=== PATIENT | male | born 1970 | race Caucasian/White ===

== ENCOUNTER 2020-06-18 04:03 | Inpatient (IN) | payer SELFPAY ==
[2020-06-18] VITALS (8 sets, daily range): BP systolic 108–122; BP diastolic 57–68; PULSE 63–72; RESP 16–20; TEMP 36.3–36.8; O2SAT 93–98
--- NOTE | ~2020-06-18 | XR_ITS ---
EXAMINATION: XR chest 2V DATE: 06/18/2020 04:59 INDICATION: Chest pain TECHNIQUE: AP view of the chest is obtained. COMPARISON: None available FINDINGS: The lungs are hyperinflated. There are minimal airspace opacities of the lung bases. There is no pleural effusion or pneumothorax. The cardiomediastinal silhouette is normal. The visualized anderson aruna and soft tissues are unremarkable. IMPRESSION: 1. Mild atelectasis of the lung bases. Reviewed, dictated and finalized at location B.
--- NOTE | ~2020-06-18 | CT_ITS ---
EXAMINATION: CT abdomen pelvis wo con DATE: 06/18/2020 04:59 INDICATION: Mid abdominal pain for one day TECHNIQUE: Computed tomography (CT) of the abdomen and pelvis was performed without intravenous contr ast. Automated exposure control and iterative reconstruction technique were employed. Exam dose: 394 .23 mGy-cm total exam DLP. COMPARISON: None. FINDINGS: Bilateral mild dependent lower lobe atelectasis. Normal heart size. No pericardial or pleural effusion. The liver, spleen, pancreas, and adrenal glands and kidneys are unremarkable on this noncontrast limi paulina examination. The common is present. No bile duct or pancreatic duct dilatation. No urinary tract calculus or hydroureteronephrosis. The urinary bladder is unremarkable. There is mod erate prostate enlargement. Normal caliber of the abdominal aorta. No intraperitoneal or retroperitoneal or pelvic mass lesion or adenopathy. There is a small amount of free fluid in the pelvis. There are numerous diverticula of the left and right colon, most numerous in the sigmoid colon and de scending colon; no CT evidence of diverticulitis. There are numerous mid to distal fluid distended small bowel segments with air-fluid levels, measurin g up to 2.5 cm diameter. Differential diagnosis includes adynamic ileus, enteritis, partial small bow el obstruction. No bowel wall thickening, pneumatosis or intraperitoneal free air is detected. Included skeletal structures are unremarkable. IMPRESSION: Nonspecific fluid distention and air-fluid levels of mid to distal small bowel; diffusio n diagnosis includes enteritis, adynamic ileus, partial small bowel obstruction Diverticulosis of the colon; no CT evidence of diverticulitis Reviewed, dictated and finalized at Location A. Reviewed, dictated and finalized at location A. IMPRESSION: Nonspecific fluid distention and air-fluid levels of mid to distal small bowel; diffusion diagnosis includes enteritis, adynamic ileus, partial s mall bowel obstruction Diverticulosis of the colon; no CT evidence of diverticulitis
--- NOTE | ~2020-06-18 | CT_ITS ---
EXAMINATION: CTA chest PE protocol DATE: 06/18/2020 05:59 INDICATION: Chest pain. Elevated d-dimer. TECHNIQUE: Computed tomography angiography (CTA) of the chest was performed with 100 mL Omnipaque-350 intravenous contrast timed to evaluate the pulmonary arteries. Coronal maximum intensity projection 3D-reconstructions were created by the technologist. Automated exposure control and iterative reconst ruction technique were employed. Exam dose: 265.76 mGy-cm total exam DLP. COMPARISON: 06/18/2022 view chest FINDINGS: There is moderate contrast enhancement of the pulmonary arteries and no evidence of central or segmental pulmonary embolism. No thoracic aortic aneurysm or dissection is detected. Normal heart size. No pericardial or pleural effusion. No hilar or mediastinal mass lesion or lymphadenopathy. The thyroid gland is of normal size and homog eneous enhancement. Emphysematous changes are evident, predominating in the upper lobes, with some bullous changes. Mild bilateral lower lobe dependent atelectasis. No pulmonary consolidation. No pulmonary mass lesion is evident. There is cupping of the superior vertebral endplate of T3 consistent with mild chronic compression fr acture deformity. IMPRESSION: No evidence of pulmonary embolism Emphysema Reviewed, dictated and finalized at Location A. Reviewed, dictated and finalized at location A.
--- NOTE | 2020-06-18 04:10 | ECG_ITS ---
Measurements Intervals [place] Rate: 70 P: 50 OH: 184 QRS: 66 QRSD: 98 T: 81 QT: 429 QTc: 466 Interpretive Statements SINUS RHYTHM NONSPECIFIC T-WAVE ABNORMALITY- HIGH LATERAL LEADS BORDERLINE ECG Electronically Signed On 06-18-2020 7:15:59 CDT by Estuardo Batres D.O.
[2020-06-18 04:31] LABS: Basophils Absolute Auto 0.05 K/mm3 (0.00-0.10); Basophils Percent Auto 0.4 % (0.0-1.0); Eosinophils Absolute Auto 0.32 K/mm3 (0.02-0.50); Eosinophils Percent Auto 2.3 % (1.0-6.0); Hemoglobin 15.1 g/dL (14.0-18.0); Immature Granulocyte Absolute 0.04 K/mm3 (0.00-0.00); Immature Granulocyte Percent A 0.3 % (0.0-0.0); Lymphocytes Absolute Auto 1.95 K/mm3 (1.10-4.50); Mean Corpuscular HGB Conc 33.6 g/dL (32.0-36.0); Mean Corpuscular Hemoglobin 31.7 pg (27.0-31.0); Mean Corpuscular Volume 94.3 fL (78.0-102.0); Mean Platelet Volume 10.9 fl (8.7-11.0); Monocytes Absolute Auto 0.67 K/mm3 (0.10-0.90); Monocytes Percent Auto 4.8 % (2.0-11.0); Neutrophils Absolute Auto 10.9 K/mm3 (1.7-7.2); Neutrophils Percent Auto 78.2 % (50.0-70.0); Platelet Count Result 247 K/mm3 (150-420); Red Blood Count 4.77 M/mm3 (4.70-6.10); Red Cell Distribution Width 12.5 % (11.6-14.4); White Blood Count 13.9 K/mm3 (4.8-10.8)
--- NOTE | 2020-06-18 04:37 | ED.CHESTPAIN ---
HPI - Chest Pain General Chief Complaint: Chest Pain Stated Complaint: chest pain Source: patient Mode of arrival: EMS Limitations: no limitations History of Present Illness HPI narrative: This is a 50-year-old gentleman that presents via EMS with shortness stabbing left-sided chest pain and abdominal pain patient states that his chest pain started approximately 2 months ago has been constant and persistent on a daily basis, with no shortness of breath, no diaphoresis no shortness of breath, no fever chills no diarrhea constipation. The patient also states that he has abdominal pain epigastric and lower abdominal pain that is sharp in nature. Patient is a smoker, is currently on PPIs for GERD and had seen his primary care physician and set up for an outpatient stress test. In route via EMS the patient did receive nitro his pain level was an 8/10 and after nitroglycerin his pain levels 5/10 currently. Also with for nausea received Zofran, and 4 baby aspirin EN route via AMS. MD complaint: chest pain and chest discomfort Onset (ago): month(s) Timing of current episode: constant Prior episodes: Yes Onset: during rest and during exertion Pain location: left chest and epigastric Severity: moderate Pain scale (0-10): 5 Quality: sharp Relieving factors: nitroglycerin Exacerbating factors: nothing Associated symptoms: nausea Related Data Home Medications Medication Instructions Recorded Confirmed omeprazole 40 mg PO DAILY 06/18/20 06/18/20 Allergies Allergy/AdvReac Type Severity Reaction Status Date / Time Penicillins Allergy Unknown Verified 06/18/20 04:29 Review of Systems Review of Systems: All systems reviewed & are unremarkable except as noted in HPI and below PMFSH Past Medical History Medical History GERD (gastroesophageal reflux disease) Exam Const: General: no acute distress and alert Orientation/consciousness: patient oriented x3 HENMT: Head: normal to inspection Eyes: Conjunctivae: conjunctivae normal Pupils: Equal, round and reactive pupils present EOM: EOMs intact bilaterally Neck: Neck: normal visual inspection, no lymphadenopathy and no meningeal signs Chest: Chest palpation & inspection: normal inspection of the chest Resp: Effort & Inspection: normal respiratory effort Auscultation: clear to auscultation bilaterally Cardio: Rate: regular rate Rhythm: regular rhythm GI: Other: tender lower abdomen with palpation the umbilical epigastric and right lower quadrant. : Testes: Testes normal Back/Spine/Pelvis: Back: no CVA tenderness Skin: General skin exam: normal color Rashes: no rashes Neuro: General: patient oriented x3, moves all extremities, no meningeal signs and no focal motor deficits Extrem: General: normal to inspection and no pedal edema Psych: Appearance: grossly normal Mental Status: mental status grossly normal Course Course Emergency Course: Patient received some nitroglycerin in route to ER via EMS which reduces pain level from 8/10 to a 5/10. Reassessment of patient has some abdominal pain and chest pain have resolved, currently there is no nausea. Vital Signs Vital signs: Vital Signs Temperature 36.8 C 06/18/20 04:29 Pulse Rate 72 06/18/20 04:29 Respiratory Rate 18 06/18/20 04:29 Blood Pressure 112/68 06/18/20 04:29 Pulse Oximetry 97 06/18/20 04:29 Temperature 36.8 C 06/18/20 04:29 Pulse Rate 72 06/18/20 04:29 Respiratory Rate 18 06/18/20 04:29 Blood Pressure 112/68 06/18/20 04:29 Pulse Oximetry 97 06/18/20 04:29 MDM - Chest Pain Lab Data Result diagrams: 06/18/20 04:27 06/18/20 04:27 Labs: Lab Results 06/18/20 06/18/20 06/18/20 Range/Units 04:27 04:27 04:27 WBC 13.9 H (4.8-10.8) K/mm3 RBC 4.77 (4.70-6.10) M/mm3 Hgb 15.1 (14.0-18.0) g/dL Hct 45.0 (40.0-54.0) % MCV 94.3 (78.0-102.0) fL M[facility]
[2020-06-18] MEDS: ONDANSETRON INJ 4 MG/2 ML VIAL IV PUSH (04:40)
[2020-06-18] MEDS: MORPHINE SULFATE 4 MG/ML INJ IV PUSH (04:40)
[2020-06-18] MEDS: SODIUM CHLORIDE 0.9% IV 1,000 ML 999 ML IV CONT (04:41)
[2020-06-18 04:49] LABS: Alanine Aminotransferase 21 U/L (16-63); Alkaline Phosphatase 100 U/L (46-116); Anion Gap 9 mmol/L (8-16); Aspartate Amino Transferase 11 U/L (15-37); Bilirubin,Total 0.4 mg/dL (0.00-1.00); Blood Urea Nitrogen 13 mg/dL (7-18); Calcium 8.3 mg/dL (8.5-10.1); Carbon Dioxide 26 mmol/L (21-32); Chloride 105 mmol/L (98-108); Estimated CRCL calculation 87 ml/min; Estimated Glomerular Filt Rate > 60; Glucose 152 mg/dL (70-99); Lipase 36 U/L (73-393); Osmolality Calculated 293 mOsm/kg (285-295); Potassium 3.7 mmol/L (3.5-5.1); Sodium 140 mmol/L (136-145); Total Protein 7.4 g/dL (6.4-8.2); Troponin I < 0.02 ng/mL (0.00-0.056)
[2020-06-18 04:55] LABS: BNP 9.3 pg/mL (0-100)
[2020-06-18 05:50] LABS: Appearance Urine Clear (Clear); Bilirubin Urine Negative (Negative); Color Urine Yellow (Yellow); Glucose Urine UA Negative (Negative); Ketones Urine Negative (Negative); Leukocyte Esterase Ur Negative (Negative); Nitrate Urine Negative (Negative); Protein Urine Negative (Negative); pH Urine 6.5 (5.0-8.0)
--- NOTE | 2020-06-18 05:54 | PC.NURSE ---
Pt returned from CT at this time in stable condition, NAD noted, reconnected to monitor, call light in reach, updated with plan of care, all questions answered, no further needs expressed.
[2020-06-18 05:56] LABS: Add Urine Microscopic? YES; Bacteria Urine None seen /hpf; Blood Urine Trace-Intact (Negative); Squamous Epithelial Cell Urine None seen /hpf (Few); WBC Urine 0-3 /hpf (0-3)
--- NOTE | 2020-06-18 07:48 | PM.IMHP ---
H&P: HPI History of Present Illness Date/Time: 06/18/20 07:48 Chief complaint: partial small bowel obstruction Narrative: arnulfo houser is a 50 year old male who presented to the [facility] with complaints of chest pain that radiated to his right arm, lower extremity pain, dizziness, palpitation, and abdominal pain. Patient has a past medical history of GERD. According to patient he has been having chest pain for the last 2 months he did visit his doctor's office on 06 12 with complaints of chest pain. His primary care physician has ordered a stress test and Holter monitor for 06/23. Patient noticed that in the past for the last 2 months he has been having chest pain with dizziness, his chest pain did radiate to his right arm and he has been having lower extremity pains with this chest pains. Patient noted that he decided to come into the ED today because he not only had dizziness with chest pain he also has a racing heart with abdominal pain. Patient's vital signs 108/57 heart rate 63 respiratory rate 20 temperature 97.3 and 93% on room air. Patient white count was slightly elevated at 13.9 his d-dimer was also elevated at 1.20. CT of the abdomen indicate possible diagnosis of enteritis, adynamic ileus, partial small bowel obstruction. Patient did have a normal bowel movement yesterday at approximately 11:00, and bowel sounds are present. Patient CTA was negative for PE and his chest x-ray indicated hyperinflated lungs. Patient is being admitted for abnormal CT of the abdomen to rule out partial small bowel obstruction and to rule out [place]. The patient denies SOB, extremity numbness, lightheadedness, constipation, diarrhea, chills, or fever. Review of Systems Review of Systems: All systems reviewed & are unremarkable except as noted in HPI and below (10 point system review) [facility] Past Medical History Medical History GERD (gastroesophageal reflux disease) Social History Social History Smoking packs per day: 1 Smoking cigarettes per day: 20.0 Years smoked: 25 Smoking pack-years: 25.00 Smoking status: Current every day smoker Tobacco type: cigarettes Second hand tobacco smoke exposure: No Alcohol intake: current Drinks per week: 3 Substance use: never Substance use type: does not use Gender identity (if verbalized by the patient): Male Sexual Orientation (if Verbalized by the Patient): Straight or Heterosexual Spiritual care concerns: No Meds Home Medications and Allergies Home Medications Medication Instructions Recorded Confirmed Type omeprazole 40 mg PO DAILY 06/18/20 06/18/20 History Allergies Allergy/AdvReac Type Severity Reaction Status Date / Time Penicillins Allergy Unknown Verified 06/18/20 04:29 Vital Signs Vital Signs - 24 hr 06/18/20 04:29 06/18/20 07:41 Temperature 98.2 F Pulse Rate 72 68 Respiratory Rate 18 16 Blood Pressure 112/68 112/63 Pulse Oximetry 97 98 Exam Narrative: Exam Narrative: GENERAL: This is a well-nourished, well-developed patient, in no apparent distress. HEAD: normocephalic, atraumatic. EYES: PERRL. Sclera clear/white. Vision is grossly intact. EARS: External ears normal, auditory canals clear and without drainage, TMs normal without perforation. Hearing grossly intact. NOSE: External nose normal with no obvious nasal discharge, nares without redness, no rhinorrhea. THROAT: Mucous membranes moist, posterior pharynx clear. NECK: Neck supple, non-tender without lymphadenopathy, masses or thyromegaly. CARDIOVASCULAR: Regular rate and rhythm without murmurs, gallops, or rubs. RESPIRATORY: Clear to auscultation. Breath sounds equal bilaterally. No wheezes, rales, or rhonchi. GASTROINTESTINAL: Abdomen soft, non-tender, nondistended. Bowel sounds are active. No hepato-splenomegaly, or palpable masses. No guarding. SKIN: warm, intact with no suspi
--- NOTE | 2020-06-18 07:50 | PC.NURSE ---
PT TO ROOM 204 PER STRETCHER ACCOMPANIED BY INTERNATIONAL PROJECT ENGINEER AND SPOUSE. PT COMPLAINS OF ABDOMINAL PAIN AND NAUSEA OFF AND ON FOR THE LAST COUPLE OF MONTHS. HAS HISTORY OR GERD. STATES HAD A SOLID BM AT 1130PM LAST NIGHT. ABD SOFT, NONTENDER, BS PRESENT X4. PT DENIES PAIN/N/V AT PRESENT. PT SLEEPY DUE TO MORPHINE GIVEN IN ER. PT AND SPOUSE ORIENTED TO ROOM, HOSPITAL ENVIRONMENT, VISITOR POLICY AND PLAN OF CARE. PT AND SPOUSE HAVE NO QUESTIONS OR CONCERNS. CALL MERAZ IN REACH. REMINDED TO CALL WITH NEEDS.
[2020-06-18] MEDS: SODIUM CHLORIDE 0.45% 1,000 ML 100 ML IV CONT ×2 (08:25→18:19)
--- NOTE | 2020-06-18 09:40 | PC.NURSE ---
PT RESTING PER BED. AND AUTOMOTIVE PRODUCT ENGINEER PRESENT AND DISCUSSING PLAN OF CARE WITH PATIENT. PT DENIES N/V/PAIN AT PRESENT. IV FLUIDS CONTINUE ORDERED. TELE NSR. REMINDED TO CALL WITH NEEDS.
[2020-06-18] MEDS: NICOTINE (*PBKC) 21 MG PATCH 1 PATCH TRANSDERM (09:41)
[2020-06-18] MEDS: PANTOPRAZOLE SODIUM IV 40 MG VIAL IV PUSH (09:41)
[2020-06-18] MEDS: ENOXAPARIN 40 MG/0.4 ML SYRINGE SUB-Q (09:42)
[2020-06-18] MEDS: BUDESONIDE/FORMOTEROL (*SP) 160-4.5 MCG 6 GM INH 2 PUFF INHALATION ×2 (09:42→21:39)
--- NOTE | 2020-06-18 10:50 | PC.NURSE ---
PT REMAINS RESTING PER BED. DENIES CP/N/V. IV FLUIDS INFUSIMG. NSR ON TELE. REMINDED TO CALL WITH NEEDS.
[2020-06-18 14:17] LABS: Troponin I < 0.02 ng/mL (0.00-0.056)
--- NOTE | 2020-06-18 18:34 | PC.NURSE ---
PT SLEEPING PER BED. IV FLUIDS INFUSING. NSR ON TELE. AT BEDSIDE.
[2020-06-18 18:44] LABS: Troponin I < 0.02 ng/mL (0.00-0.056)
[2020-06-19] VITALS: BP 110/57; PULSE 60; RESP 18; TEMP 36.6; O2SAT 95
[2020-06-19 03:58] VITALS: PULSE 65
[2020-06-19 04:00] VITALS: BP 108/53; PULSE 58; RESP 16; TEMP 36.2; O2SAT 96
[2020-06-19] MEDS: SODIUM CHLORIDE 0.45% 1,000 ML 100 ML IV CONT (04:07)
[2020-06-19 05:39] LABS: Basophils Absolute Auto 0.05 K/mm3 (0.00-0.10); Basophils Percent Auto 0.7 % (0.0-1.0); Eosinophils Absolute Auto 0.36 K/mm3 (0.02-0.50); Eosinophils Percent Auto 5.2 % (1.0-6.0); Hematocrit 42.8 % (40.0-54.0); Hemoglobin 14.1 g/dL (14.0-18.0); Immature Granulocyte Absolute 0.01 K/mm3 (0.00-0.00); Immature Granulocyte Percent A 0.1 % (0.0-0.0); Lymphocytes Absolute Auto 2.83 K/mm3 (1.10-4.50); Lymphocytes Percent Auto 41.3 % (18.0-42.0); Mean Corpuscular HGB Conc 32.9 g/dL (32.0-36.0); Mean Corpuscular Hemoglobin 31.3 pg (27.0-31.0); Mean Corpuscular Volume 94.9 fL (78.0-102.0); Monocytes Absolute Auto 0.51 K/mm3 (0.10-0.90); Monocytes Percent Auto 7.4 % (2.0-11.0); Neutrophils Absolute Auto 3.1 K/mm3 (1.7-7.2); Neutrophils Percent Auto 45.3 % (50.0-70.0); Platelet Count Result 224 K/mm3 (150-420); Red Blood Count 4.51 M/mm3 (4.70-6.10); Red Cell Distribution Width 12.7 % (11.6-14.4); White Blood Count 6.9 K/mm3 (4.8-10.8)
[2020-06-19 05:57] LABS: Alanine Aminotransferase 8 U/L (16-63); Albumin Level 3.3 g/dL (3.4-5.0); Alkaline Phosphatase 86 U/L (46-116); Anion Gap 9 mmol/L (8-16); Aspartate Amino Transferase < 10 U/L (15-37); Bilirubin,Total 0.4 mg/dL (0.00-1.00); Blood Urea Nitrogen 9 mg/dL (7-18); Carbon Dioxide 23 mmol/L (21-32); Chloride 109 mmol/L (98-108); Estimated CRCL calculation 99 ml/min; Estimated Glomerular Filt Rate > 60; Glucose 106 mg/dL (70-99); Magnesium 2.1 mg/dL (1.8-2.4); Osmolality Calculated 290 mOsm/kg (285-295); Potassium 3.9 mmol/L (3.5-5.1); Sodium 141 mmol/L (136-145); Total Protein 6.3 g/dL (6.4-8.2)
[2020-06-19] MEDS: PANTOPRAZOLE SODIUM IV 40 MG VIAL IV PUSH (06:29)
[2020-06-19 07:25] VITALS: BP 136/67; PULSE 64; RESP 18; TEMP 36.3; O2SAT 99
--- NOTE | 2020-06-19 07:25 | P.DS_ITS ---
DS: Admitting Diagnosis Admitting Diagnosis Admitting Diagnosis: partial small bowel obstruction DS: Discharge Diagnosis Discharge Diagnosis (1) Partial obstruction of small intestine: Code(s): K56.600 - Partial intestinal obstruction, unspecified as to cause Status: Acute Assessment and Plan: * Resolved * Patient tolerated regular diet * Patient denies any nausea vomiting or abdominal pain at this time (2) GERD (gastroesophageal reflux disease): Code(s): K21.9 - Gastro-esophageal reflux disease without esophagitis Status: Acute Assessment and Plan: * Continue IV Protonix (3) Hyperinflation of lungs: Code(s): R09.89 - Other specified symptoms and signs involving the circulatory and respiratory systems Status: Acute Assessment and Plan: * Possibly secondary to COPD patient has not been diagnosed with COPD but he is a smoker * Chest x-ray indicates hyperinflated lungs * Continue Symbicort and albuterol * Advised patient to follow-up with the pulmonary function test after discharge to officially diagnose him with COPD (4) Tobacco dependency: Code(s): F17.200 - Nicotine dependence, unspecified, uncomplicated Status: Acute Assessment and Plan: * Started nicotine patch (5) DVT prophylaxis: Code(s): Z29.9 - Encounter for prophylactic measures, unspecified Status: Acute Assessment and Plan: * Patient will discharge today (6) Abnormal CT of the abdomen: Code(s): R93.5 - Abnormal findings on diagnostic imaging of other abdominal regions, incl uding retroperitoneum Status: Acute Assessment and Plan: * Resolved * CT indicates CT indicates possible enteritis vs adynamic ileus vs partial small bowel obstruction * Bowel sounds positive * Last bowel movement last night at 11:00 AM * Patient able to tolerate meals (7) Chest pain: Code(s): R07.9 - Chest pain, unspecified Status: Acute Assessment and Plan: * [place] ruled out and treat GERD with Protonix * Patient troponin negative, * Patient scheduled to have a stress test with Holter monitor on 06/23 * Patient reported to his primary care physician office on with chest pain * Patient will be discharged on statins * ASCVD indicates patient heart disease risk are under 10%, with a 8% risk for 10 year for HD or stroke . will place patient on atorvastatin 10 mg daily * Patient also presented to the ED on 05/08/2020 [place] was ruled out at that time. DS: Summary Time Spent with Patient Time attestation: Total time spent providing and/or coordinating discharge services: Exam Narrative: Exam Narrative: GENERAL: This is a well-nourished, well-developed patient, in no apparent distress. HEAD: normocephalic, atraumatic. EYES: PERRL. Sclera clear/white. Vision is grossly intact. EARS: External ears normal, auditory canals clear and without drainage, TMs normal without perforation. Hearing grossly intact. NOSE: External nose normal with no obvious nasal discharge, nares without redness, no rhinorrhea. THROAT: Mucous membranes moist, posterior pharynx clear. NECK: Neck supple, non-tender without lymphadenopathy, masses or thyromegaly. CARDIOVASCULAR: Regular rate and rhythm without murmurs, gallops, or rubs. RESPIRATORY: Clear to auscultation. Breath sounds equal bilaterally. No wheezes, rales, or rhonchi. GASTROINTESTINAL: Abdomen soft, non-tender, nondistended. Bowel sounds are active. No hepato-splenomegaly, or palpable masses. No guarding. SKIN: warm, intact with no suspicious lesions o
--- NOTE | 2020-06-19 07:25 | PM.DS ---
DS: Admitting Diagnosis Admitting Diagnosis Admitting Diagnosis: partial small bowel obstruction DS: Discharge Diagnosis Discharge Diagnosis (1) Partial obstruction of small intestine: Code(s): K56.600 - Partial intestinal obstruction, unspecified as to cause Status: Acute Assessment and Plan: Resolved Patient tolerated regular diet Patient denies any nausea vomiting or abdominal pain at this time (2) GERD (gastroesophageal reflux disease): Code(s): K21.9 - Gastro-esophageal reflux disease without esophagitis Status: Acute Assessment and Plan: Continue IV Protonix (3) Hyperinflation of lungs: Code(s): R09.89 - Other specified symptoms and signs involving the circulatory and respiratory systems Status: Acute Assessment and Plan: Possibly secondary to COPD patient has not been diagnosed with COPD but he is a smoker Chest x-ray indicates hyperinflated lungs Continue Symbicort and albuterol Advised patient to follow-up with the pulmonary function test after discharge to officially diagnose him with COPD (4) Tobacco dependency: Code(s): F17.200 - Nicotine dependence, unspecified, uncomplicated Status: Acute Assessment and Plan: Started nicotine patch (5) DVT prophylaxis: Code(s): Z29.9 - Encounter for prophylactic measures, unspecified Status: Acute Assessment and Plan: Patient will discharge today (6) Abnormal CT of the abdomen: Code(s): R93.5 - Abnormal findings on diagnostic imaging of other abdominal regions, including retroperitoneum Status: Acute Assessment and Plan: Resolved CT indicates CT indicates possible enteritis vs adynamic ileus vs partial small bowel obstruction Bowel sounds positive Last bowel movement last night at 11:00 AM Patient able to tolerate meals (7) Chest pain: Code(s): R07.9 - Chest pain, unspecified Status: Acute Assessment and Plan: [place] ruled out and treat GERD with Protonix Patient troponin negative, Patient scheduled to have a stress test with Holter monitor on 06/23 Patient reported to his primary care physician office on with chest pain Patient will be discharged on statins ASCVD indicates patient heart disease risk are under 10%, with a 8% risk for 10 year for HD or stroke . will place patient on atorvastatin 10 mg daily Patient also presented to the ED on 05/08/2020 [place] was ruled out at that time. DS: Summary Time Spent with Patient Time attestation: Total time spent providing and/or coordinating discharge services: Exam Narrative: Exam Narrative: GENERAL: This is a well-nourished, well-developed patient, in no apparent distress. HEAD: normocephalic, atraumatic. EYES: PERRL. Sclera clear/white. Vision is grossly intact. EARS: External ears normal, auditory canals clear and without drainage, TMs normal without perforation. Hearing grossly intact. NOSE: External nose normal with no obvious nasal discharge, nares without redness, no rhinorrhea. THROAT: Mucous membranes moist, posterior pharynx clear. NECK: Neck supple, non-tender without lymphadenopathy, masses or thyromegaly. CARDIOVASCULAR: Regular rate and rhythm without murmurs, gallops, or rubs. RESPIRATORY: Clear to auscultation. Breath sounds equal bilaterally. No wheezes, rales, or rhonchi. GASTROINTESTINAL: Abdomen soft, non-tender, nondistended. Bowel sounds are active. No hepato-splenomegaly, or palpable masses. No guarding. SKIN: warm, intact with no suspicious lesions or rash, good texture and turgor. NEURO: awake, alert, and oriented to person, place and time. There were no obvious focal neurologic abnormalities. Steady gait EXTREMITIES: Normal range of motion. No edema. No calf tenderness. Negative Homans sign bilaterally. BACK: Nontender without deformity or crepitance. No flank tenderness. [place] Coma Scale Eye Opening: Spontaneous 4 Zac Coma Scale Motor: Obey
[2020-06-19] MEDS: BUDESONIDE/FORMOTEROL (*SP) 160-4.5 MCG 6 GM INH 2 PUFF INHALATION (09:12)
[2020-06-19] MEDS: ATORVASTATIN 10 MG TABLET PO (09:13)
--- NOTE | 2020-06-19 11:15 | PC.NURSE ---
Patient to be discharged home. IV sites removed, tip intact. Dressing applied to sites. No redness noted. Telemetry removed. All discharge instructions and education reviewed with patient. Patient states understanding. Denies any questions at this time. Patient ambulated to front door accompanied by this nurse. Patient left via private vehicle with family member.
== END 2020-06-19 11:15 | disposition home or self-care (01) | DRG 247 ==
LOC: CHSED 07:22 → CHS2ND 07:26
PROVIDERS: Emergency Medicine; Admitting Provider Emergency Medicine; Emergency Provider Emergency Medicine; Visit Provider Emergency Medicine
DX: K56.609 Unspecified intestinal obstruction, unspecified as to partial versus complete obstruction (principal); K21.9 Gastro-esophageal reflux disease without esophagitis; F17.200 Nicotine dependence, unspecified, uncomplicated; K57.90 Diverticulosis of intestine, part unspecified, without perforation or abscess without bleeding; K56.600 Partial intestinal obstruction, unspecified as to cause; R07.9 Chest pain, unspecified; F17.210 Nicotine dependence, cigarettes, uncomplicated; R09.89 Other specified symptoms and signs involving the circulatory and respiratory systems
CPT/HCPCS: 36415; 71046; 71275; 74176; 80053; 81001; 83690; 83735; 83880; 84484; 85025; 85380; 93005; 96361; 96374; 96375; 99284; 99285; A9270; C9113; J1650; J2270; J2405; J7030; Q9965

== ENCOUNTER 2022-03-02 08:42 | Outpatient (CLI) | payer BC, SELFPAY ==
--- NOTE | 2022-03-02 08:44 | EST_ITS ---
Patient Info Name: Mikhail Shahid Age: 51 years : 1970 Gender: Male Ht: 75 in Wt: 168 lbs BSA: 2.00 m2 HR: 62 bpm BP: 120 / 66 mmHg Heart Rhythm: Sinus Rhythm Exam Date: 03/02/2022 9:13 AM Exam Location: [facility] Patient Status: Outpatient Admit Date: 03/02/2022 Staff Ordering Physician: Debi Olivares NP Shell Reprint Operator: Chloe Tanner RDCS Attending Provider: Debi Olivares NP Exercise Technologist: Kelli Tian CT Exercise Physician: Estuardo Batres DO Exam Type: CA stress echo Study Info Indications I20.8 - Other forms of angina pectoris Treadmill exercise stress echocardiogram is performed. Summary 1. 1. Negative Shaun exercise stress test for ischemic ST changes by ECG criteria. However, patient achieved only 76% MPHR for age group which reduces sensitivity of the test. His last dose of Metoprolol Succinate was 24 hours ago. 2. 2. Good functional capacity, achieving 10 METs of workload. 3. 3. Appropriate HR response to exercise. 4. 4. Appropriate HR recovery at 1 minute post exercise. 5. 5. Negative stress echocardiogram for ischemia by wall motion analysis. 6. 6. Patient informed of the above results. Stress Echo Findings Left Ventricle Appropriate increase in LV endocardial thickening with systole. Appropriate augmentation of contractility with systole. No wall motion abnormality. Left Ventricle Normal LV systolic function, no wall motion abnormality. Protocol: Shaun Stress ECG Details Stage: REST Duration (min): 1 min : 4 sec Speed (mph): 0.0 Grade (%): 0 HR (bpm): 59 SBP (mmHg): 120 DBP (mmHg): 66 METS: --- Stage: REST Duration (min): 18 min : 1 sec Speed (mph): 0.0 Grade (%): 0 HR (bpm): 66 SBP (mmHg): 120 DBP (mmHg): 66 METS: --- Stage: STAGE 1 Duration (min): 1 min : 0 sec Speed (mph): 1.7 Grade (%): 10 HR (bpm): 98 SBP (mmHg): 120 DBP (mmHg): 66 METS: --- Stage: STAGE 1 Duration (min): 2 min : 0 sec Speed (mph): 1.7 Grade (%): 10 HR (bpm): 101 SBP (mmHg): 120 DBP (mmHg): 66 METS: --- Stage: STAGE 1 Duration (min): 3 min : 0 sec Speed (mph): 1.7 Grade (%): 10 HR (bpm): 101 SBP (mmHg): 144 DBP (mmHg): 66 METS: --- Stage: STAGE 2 Duration (min): 1 min : 0 sec Speed (mph): 2.5 Grade (%): 12 HR (bpm): 109 SBP (mmHg): 144 DBP (mmHg): 66 METS: --- Stage: STAGE 2 Duration (min): 2 min : 0 sec Speed (mph): 2.5 Grade (%): 12 HR (bpm): 111 SBP (mmHg): 198 DBP (mmHg): 59 METS: --- Stage: STAGE 2 Duration (min): 3 min : 0 sec Speed (mph): 2.5 Grade (%): 12 HR (bpm): 116 SBP (mmHg): 198 DBP (mmHg): 59 METS: --- Stage: STAGE 3 Duration (min): 1 min : 0 sec Speed (mph): 3.4 Grade (%): 14 HR (bpm): 124 SBP (mmHg): 145 DBP (mmHg): 66 METS: --- Stage: STAGE 3 Duration (min): 1 min : 48 sec Speed (mph): 0.0 Grade (%): 0 HR (bpm): 128
== END 2022-03-02 08:43 | disposition home or self-care (01) ==
LOC: ANHCARD 08:43
PROVIDERS: PCP Family Medicine; Visit Provider Nurse Practitioner Family
DX: I20.8 Other forms of angina pectoris (principal)
CPT/HCPCS: 93351

== ENCOUNTER 2022-06-07 10:49 | Outpatient (CLI) | payer BC, SELFPAY ==
[2022-06-07 11:04] LABS: Basophils Absolute Auto 0.05 K/mm3 (0.00-0.10); Basophils Percent Auto 0.6 % (0.0-1.0); Eosinophils Absolute Auto 0.32 K/mm3 (0.02-0.50); Eosinophils Percent Auto 3.6 % (1.0-6.0); Hematocrit 42.5 % (40.0-54.0); Hemoglobin 14.5 g/dL (14.0-18.0); Immature Granulocyte Absolute 0.03 K/mm3 (0.00-0.00); Immature Granulocyte Percent A 0.3 % (0.0-0.0); Lymphocytes Absolute Auto 2.42 K/mm3 (1.10-4.50); Lymphocytes Percent Auto 27.4 % (18.0-42.0); Mean Corpuscular HGB Conc 34.1 g/dL (32.0-36.0); Mean Corpuscular Hemoglobin 32.5 pg (27.0-31.0); Mean Corpuscular Volume 95.3 fL (78.0-102.0); Mean Platelet Volume 11.4 fl (8.7-11.0); Monocytes Absolute Auto 0.74 K/mm3 (0.10-0.90); Monocytes Percent Auto 8.4 % (2.0-11.0); Neutrophils Absolute Auto 5.3 K/mm3 (1.7-7.2); Neutrophils Percent Auto 59.7 % (50.0-70.0); Platelet Count Result 214 K/mm3 (150-420); Red Blood Count 4.46 M/mm3 (4.70-6.10); Red Cell Distribution Width 12.5 % (11.6-14.4); White Blood Count 8.8 K/mm3 (4.8-10.8)
[2022-06-07 11:19] LABS: Alanine Aminotransferase 30 U/L (16-63); Albumin Level 3.8 g/dL (3.4-5.0); Alkaline Phosphatase 108 U/L (46-116); Anion Gap 8 mmol/L (8-16); Aspartate Amino Transferase 15 U/L (15-37); Bilirubin,Total 0.5 mg/dL (0.00-1.00); Blood Urea Nitrogen 13 mg/dL (7-18); Calcium 8.5 mg/dL (8.5-10.1); Carbon Dioxide 24 mmol/L (21-32); Chloride 104 mmol/L (98-108); Cholesterol 117 mg/dL (0-200); Estimated Glomerular Filt Rate > 60; Glucose 151 mg/dL (70-99); HDL Direct 29 mg/dL (40-60); LDL Cholesterol Calculated 67 mg/dL (<130); Osmolality Calculated 285 mOsm/kg (285-295); Potassium 3.7 mmol/L (3.5-5.1); Sodium 136 mmol/L (136-145); Total Protein 6.9 g/dL (6.4-8.2); Triglycerides 107 mg/dL (0-150)
== END 2022-06-07 10:50 | disposition home or self-care (01) ==
LOC: CHSLAB 10:55
PROVIDERS: PCP Nurse Practitioner Family; Visit Provider Internal Medicine Cardiovascular Disease
DX: E78.5 Hyperlipidemia, unspecified (principal)
CPT/HCPCS: 36415; 80053; 80061; 85025